=== PATIENT | male | born 1945 | race Caucasian/White ===

== ENCOUNTER → 2016-12-30 | Outpatient (CLI) | payer OTHER ==
[~2016-12-30] MED LIST: ACET65TA; ASPI81TA85 PO; CENTTAB PO; CIAL5TAB PO; COUM10TA; COUM2.5T17 PO; GLUCTAB6 PO; KAPIDEX; NEXI20CA PO; PERC5TAB12 PO; PERC7.5T8
[2016-12-30 08:11] LABS: BASO # 0.1 K/mm3 (0.0-0.2); BASO % 1.2 % (0.0-1.0); EOS # 0.2 K/mm3 (0.0-0.50); EOS % 4.4 % (0.0-3.0); LARGE UNSTAINED CELL # 0.1 K/mm3 (0.0-0.4); LARGE UNSTAINED CELL % 2.3 % (0.0-4.0); LYMPH # 1.8 K/mm3 (1.5-4.5); LYMPH % 29.4 % (24.0-44.0); MEAN CORPUSCULAR HEMOGLOBIN 32.1 pg (27.0-33.0); MEAN CORPUSCULAR VOLUME 94.3 fl (80.0-96.0); MONO # 0.4 K/mm3 (0.0-0.8); MONO % 6.7 % (0.0-5.0); NEUTROPHILS # 3.2 K/mm3 (1.8-7.7); PLATELET COUNT, AUTOMATED 226 k/mm3 (150-450); RED CELL DISTRIBUTION WIDTH 12.8 % (11.5-14.5); WHITE BLOOD COUNT 5.7 K/mm3 (4.0-10.0)
[2016-12-30 09:11] LABS: ERYTHROCYTE SEDIMENTATION RATE 3 mm/hr (0-20)
--- NOTE | 2016-12-30 10:47 | REP ---
TRIPLE PHASE BONE SCAN, KNEES: Following the intravenous administration of 22 mCi of technetium-99m MDP, patient's knees are imaged in the flow phase in the anterior and posterior projections, showing slightly increased blood flow to the region of the left knee. Immediate blood pool and 2.5 hour delay images are performed of the knees in the anterior, posterior, and both lateral projections. 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 There is mild diffuse increased blood pooling in the region of the left knee joint. Delayed images show mild increased uptake in the distal end of the femur and proximal end of the tibia adjacent to the metallic prosthetic components. This most likely represents postsurgical osseous uptake. Some degree of loosening cannot be completely excluded. Signed by Yfn Cagle MD 12/30/2016 05:07 P
== END ==
LOC: M RAD 07:25
PROVIDERS: ATTEND Orthopaedic Surgery
DX: Z96.652 Presence of left artificial knee joint (principal)

== ENCOUNTER → 2017-03-07 | Outpatient (REF) | payer OTHER | LOC: M LAB REF 12:06 | PROVIDERS: ATTEND Internal Medicine | DX: R53.83 Other fatigue (principal); N52.9 Male erectile dysfunction, unspecified ==

== ENCOUNTER → 2018-08-26 | Outpatient (REF) | payer MEDICARE, OTHER | LOC: M LAB REF 12:37 | PROVIDERS: ATTEND Surgery | DX: D17.22 Benign lipomatous neoplasm of skin and subcutaneous tissue of left arm (principal) ==

== ENCOUNTER → 2019-07-26 | Outpatient (REF) | payer MEDICARE, OTHER | LOC: M LAB REF 12:08 | PROVIDERS: ATTEND Physician Assistant | DX: M54.5 Low back pain (principal); N39.0 Urinary tract infection, site not specified ==

== ENCOUNTER → 2020-05-15 | Outpatient (CLI) | payer MEDICARE, OTHER ==
[~2020-05-15] MED LIST changes: -ASPI81TA85 PO; +ASPI81TA86 PO
--- NOTE | 2020-05-15 10:23 | REP ---
INDICATION: DYSPNEA COMPARISON: 04/16/2016 TECHNIQUE: PA and lateral. FINDINGS: The mediastinum and cardiac silhouette are normal. The lung garcia are clear and without acute consolidation, effusion, or pneumothorax. Small stable calcified granuloma in the periphery of the left mid lung zone unchanged. The skeletal structures are intact and normal. IMPRESSION: No acute cardiopulmonary process. If the patient remains symptomatic consider chest CT for further investigation. <Electronically signed by Erick Hernandez > 05/15/20 [id number]
== END ==
LOC: M RAD 10:05
PROVIDERS: ATTEND Physician Assistant
DX: R06.00 Dyspnea, unspecified (principal)

== ENCOUNTER 2023-04-23 15:49 | Emergency (ER) | payer OTHER, MEDICARE ==
[~2023-04-23] VITALS: Ht 190.5 cm; Wt 102.3 kg
[~2023-04-23 15:49] MED LIST changes: -GLUCTAB6 PO; +GLUCTAB7 PO
[2023-04-23 15:52] VITALS: BP 146/82; TEMP 98.9; O2SAT 97
[2023-04-23] MEDS ORDERED: ATOR40TA75 (16:18)
[2023-04-23] MEDS ORDERED: INCR1INH (16:18)
[2023-04-23] MEDS ORDERED: OMEP1CAP71 PO (16:18)
[2023-04-23] MEDS ORDERED: ALBU8.5H (16:18)
[2023-04-23] MEDS ORDERED: TADA5TAB PO (16:18)
== END 2023-04-23 20:13 | disposition home or self-care (01) ==
LOC: M ED 15:49
DX: S16.1XXA Strain of muscle, fascia and tendon at neck level, initial encounter (principal); V49.40XA Driver injured in collision with unspecified motor vehicles in traffic accident, initial encounter; J44.9 Chronic obstructive pulmonary disease, unspecified; Z87.891 Personal history of nicotine dependence; Z79.899 Other long term (current) drug therapy

== ENCOUNTER 2023-07-04 05:38 | Emergency (ER) | payer MEDICARE, OTHER ==
[~2023-07-04] VITALS: Ht 190.5 cm; Wt 103.2 kg
[~2023-07-04 05:38] MED LIST changes: +ALBU8.5H; +ATOR40TA75; +INCR1INH; +OMEP1CAP71 PO; +TADA5TAB PO
[2023-07-04 05:44] VITALS: BP 156/78; TEMP 97.8; O2SAT 96
[2023-07-04] MEDS ORDERED: dexAMETHasone 20MG/5ML VIAL IV ONE (07:25)
[2023-07-04] MEDS ORDERED: IPRATROPIUM 0.5MG/ALBUTEROL 2.5MG INH SOL UD 3ML (DUONEB) NEB ONE (07:25)
[2023-07-04 08:15] LABS: BASO # 0.1 10^3/uL (0.0-0.2); BASO % 1.3 % (0.0-1.0); EOS # 0.7 10^3/uL (0.0-0.5); EOS % 7.7 % (0.0-3.0); HEMATOCRIT 45.5 % (42.0-52.0); HEMOGLOBIN 15.1 g/dl (13.5-17.5); LYMPH # 1.6 10^3/uL (1.5-5.0); LYMPH % 16.9 % (24.0-44.0); MEAN CORPUSCULAR HEMOGLOBIN 31.1 pg (27.0-33.0); MEAN CORPUSCULAR HGB CONC 33.2 g/dl (32.0-36.5); MEAN CORPUSCULAR VOLUME 93.8 fl (80.0-96.0); MONO # 0.8 10^3/uL (0.0-0.8); MONO % 8.4 % (2.0-8.0); NEUTROPHILS # 6.2 10^3/uL (1.5-8.5); NEUTROPHILS % 65.4 % (36.0-66.0); PLATELET COUNT, AUTOMATED 277 10^3/uL (150-450); RED BLOOD COUNT 4.85 10^6/uL (4.30-6.10); WHITE BLOOD COUNT 9.4 10^3/uL (4.0-10.0)
[2023-07-04] MEDS ORDERED: PRED20TA PO (09:50)
[2023-07-04] MEDS ORDERED: DOXY-443 PO (09:50)
== END 2023-07-04 10:00 | disposition home or self-care (01) ==
LOC: M ED 05:38
DX: J44.1 Chronic obstructive pulmonary disease with (acute) exacerbation (principal); E78.5 Hyperlipidemia, unspecified; K21.9 Gastro-esophageal reflux disease without esophagitis; Z87.891 Personal history of nicotine dependence; Z79.51 Long term (current) use of inhaled steroids; Z79.899 Other long term (current) drug therapy
CPT/HCPCS: 71046; 80047; 85025; 87486; 87581; 87633; 87798; 94640; 96374; 99284; J1100

== ENCOUNTER 2023-07-13 02:58 | Emergency (ER) | payer MEDICARE, OTHER ==
[~2023-07-13] VITALS: Ht 190.5 cm; Wt 102.0 kg
[~2023-07-13 02:58] MED LIST changes: -ATOR40TA75; +ATOR40TA75 PO; +DOXY-443 PO; +PRED20TA PO
[2023-07-13] MEDS ORDERED: METAL LOCK LOOP XX ONE (04:32)
[2023-07-13 05:38] LABS: BASO # 0.1 10^3/uL (0.0-0.2); EOS # 0.8 10^3/uL (0.0-0.5); HEMOGLOBIN 15.3 g/dl (13.5-17.5); LYMPH # 1.9 10^3/uL (1.5-5.0); LYMPH % 19.1 % (24.0-44.0); MEAN CORPUSCULAR HEMOGLOBIN 31.5 pg (27.0-33.0); MEAN CORPUSCULAR VOLUME 92.6 fl (80.0-96.0); MONO # 1.1 10^3/uL (0.0-0.8); NEUTROPHILS # 6.1 10^3/uL (1.5-8.5); NEUTROPHILS % 60.1 % (36.0-66.0); PLATELET COUNT, AUTOMATED 255 10^3/uL (150-450); RED BLOOD COUNT 4.86 10^6/uL (4.30-6.10); WHITE BLOOD COUNT 10.1 10^3/uL (4.0-10.0)
[2023-07-13 06:14] LABS: ALBUMIN 3.5 G/DL (3.2-5.2); ALKALINE PHOSPHATASE 85 U/L (46-116); ALT/SGPT 37 U/L (7.0-40); AST/SGOT 15 U/L (<34); BILIRUBIN,DIRECT 0.3 MG/DL (<0.4); BILIRUBIN,TOTAL 0.8 MG/DL (0.3-1.2); BLOOD UREA NITROGEN 18 MG/DL (9-23); CALCIUM LEVEL 8.7 MG/DL (8.3-10.6); CARBON DIOXIDE LEVEL 29 MMOL/L (20-31); CHLORIDE LEVEL 107 MMOL/L (98-107); CPK CREATINE PHOSPHOKINASE 134 U/L (46-171); CREATININE FOR GFR 0.95 MG/DL (0.70-1.30); GLOMERULAR FILTRATION RATE > 60.0 (>42); GLUCOSE, FASTING 99 MG/DL (74-106); MB/CK RELATIVE INDEX 1.49 (< OR =4); POTASSIUM SERUM 4.7 MMOL/L (3.5-5.1); SODIUM LEVEL 141 MMOL/L (136-145); TOTAL PROTEIN 6.1 G/DL (5.7-8.2)
[2023-07-13] MEDS: IPRATROPIUM 0.5MG/ALBUTEROL 2.5MG INH SOL UD 3ML (DUONEB) NEB SCH ×3 (06:34→06:56)
[2023-07-13] MEDS ORDERED: methylPREDNISolone 125MG 2ML VIAL IV ONE (07:00)
[2023-07-13 07:41] LABS: CK-MB VALUE MASS 2.8 NG/ML (<3.6)
[2023-07-13 07:53] LABS: MB/CK RELATIVE INDEX 1.98 (< OR =4)
[2023-07-13 07:56] VITALS: O2SAT 93
[2023-07-13] MEDS ORDERED: PRED20TA PO (08:21)
[2023-07-13 08:28] VITALS: BP 151/71; TEMP 97.8; O2SAT 95
[2023-07-16] MEDS ORDERED: THERTAB52 PO (07:51)
[2023-07-16] MEDS ORDERED: BREO1INH3 (07:51)
[2023-07-16] MEDS ORDERED: TADA5TAB PO (08:21)
== END 2023-07-13 08:32 | disposition home or self-care (01) ==
LOC: M ED 02:58
DX: J44.1 Chronic obstructive pulmonary disease with (acute) exacerbation (principal); K21.9 Gastro-esophageal reflux disease without esophagitis; I49.1 Atrial premature depolarization; Z79.810 Long term (current) use of selective estrogen receptor modulators (SERMs); Z79.899 Other long term (current) drug therapy; Z79.51 Long term (current) use of inhaled steroids; Z79.52 Long term (current) use of systemic steroids
CPT/HCPCS: 71045; 80048; 80076; 82550; 82553; 83605; 83880; 84484; 85025; 87486; 87581; 87633; 87798; 93005; 94640; 96374; 99284; J2930

== ENCOUNTER 2023-07-30 07:40 | Day surgery (SDC) | payer MEDICARE, OTHER ==
[~2023-07-30] VITALS: Ht 190.5 cm; Wt 98.6 kg
[~2023-07-30 07:40] MED LIST changes: +BREO1INH3; +NS 1,000 ML IV ONE; +THERTAB52 PO; +propofoL 200 MG/20 ML VIAL As Ordered ONE
[2023-07-30] MEDS: NS 1,000 ML IV ONE (08:25)
[2023-07-30 09:05] VITALS: TEMP 98.1
[2023-07-30 09:25] VITALS: BP 113/63; O2SAT 95
== END 2023-07-30 09:32 | disposition home or self-care (01) ==
LOC: M OPP 07:40
PROVIDERS: ATTEND Internal Medicine Gastroenterology
DX: Z12.11 Encounter for screening for malignant neoplasm of colon (principal); Z86.010 Personal history of colon polyps; Z80.0 Family history of malignant neoplasm of digestive organs; D12.3 Benign neoplasm of transverse colon; K64.0 First degree hemorrhoids; K22.70 Barrett's esophagus without dysplasia; K21.00 Gastro-esophageal reflux disease with esophagitis, without bleeding; R12 Heartburn; Z79.02 Long term (current) use of antithrombotics/antiplatelets; Z79.51 Long term (current) use of inhaled steroids; Z79.891 Long term (current) use of opiate analgesic; Z79.899 Other long term (current) drug therapy

== ENCOUNTER 2023-10-13 11:03 | Day surgery (SDC) | payer MEDICARE, OTHER ==
[~2023-10-13] VITALS: Ht 190.5 cm; Wt 101.0 kg
[~2023-10-13 11:03] MED LIST changes: +ALBU2.5V10 INH; -ALBU8.5H; +ALBU8.5H INH; +BREO1INH3 INH; +INCR1INH INH; +LR 1,000 ML IV SCH; +MIDAZOLAM INJ 2MG/2ML VIAL As Ordered ONE; -NS 1,000 ML IV ONE; +VITA-256 PO; +fentaNYL 100 MCG/2 ML INJECTION As Ordered ONE; -propofoL 200 MG/20 ML VIAL As Ordered ONE
[2023-10-13] MEDS: FLURBIPROFEN 0.03% OPHTH SOLN 2.5 ML OS SCH (12:30)
[2023-10-13] MEDS: TETRACAINE 0.5% OPHTH SOLN 4ML OS SCH (12:30)
[2023-10-13] MEDS: ATROPINE SULFATE 1% OPHTH SOLN 2ML BTL OS SCH (12:30)
[2023-10-13] MEDS: PHENYLEPHRINE 2.5% OPHTH SOL 2ML OS SCH (12:30)
[2023-10-13] MEDS: LIDOCAINE 1% SDV 5ML VIAL As Ordered ONE (14:08)
[2023-10-13] MEDS: CEFUROXIME 1MG/0.1ML INTRACAMERAL INJ As Ordered ONE (14:09)
[2023-10-13 14:29] VITALS: BP 154/64; TEMP 97.3; O2SAT 96
== END 2023-10-13 14:45 | disposition home or self-care (01) ==
LOC: M SDC 11:03
PROVIDERS: ATTEND Ophthalmology
DX: H25.12 Age-related nuclear cataract, left eye (principal); R06.02 Shortness of breath; J44.9 Chronic obstructive pulmonary disease, unspecified; E78.00 Pure hypercholesterolemia, unspecified; K21.9 Gastro-esophageal reflux disease without esophagitis; Z87.891 Personal history of nicotine dependence; Z79.899 Other long term (current) drug therapy; Z79.51 Long term (current) use of inhaled steroids
CPT/HCPCS: 66984; J0697; J2250; J3010; V2632

== ENCOUNTER 2023-11-03 09:35 | Day surgery (SDC) | payer MEDICARE, OTHER ==
[~2023-11-03] VITALS: Ht 190.5 cm; Wt 100.2 kg
[~2023-11-03 09:35] MED LIST changes: +DOXY-323 PO; -DOXY-443 PO
[2023-11-03] MEDS: FLURBIPROFEN 0.03% OPHTH SOLN 2.5 ML OD SCH (10:11)
[2023-11-03] MEDS: ATROPINE SULFATE 1% OPHTH SOLN 2ML BTL OD SCH (10:11)
[2023-11-03] MEDS: PHENYLEPHRINE 2.5% OPHTH SOL 2ML OD SCH (10:11)
[2023-11-03] MEDS: TETRACAINE 0.5% OPHTH SOLN 4ML OD SCH (10:12)
[2023-11-03] MEDS ORDERED: FLUT1BLS8 (10:23)
[2023-11-03] MEDS: CEFUROXIME 1MG/0.1ML INTRACAMERAL INJ As Ordered ONE (11:37)
[2023-11-03] MEDS: LIDOCAINE 1% SDV 5ML VIAL As Ordered ONE (11:37)
[2023-11-03 11:58] VITALS: BP 133/69; TEMP 97.8; O2SAT 98
== END 2023-11-03 12:20 | disposition home or self-care (01) ==
LOC: M SDC 09:35
PROVIDERS: ATTEND Ophthalmology
DX: H25.11 Age-related nuclear cataract, right eye (principal); E78.00 Pure hypercholesterolemia, unspecified; K21.9 Gastro-esophageal reflux disease without esophagitis; M19.90 Unspecified osteoarthritis, unspecified site; J44.9 Chronic obstructive pulmonary disease, unspecified; Z98.42 Cataract extraction status, left eye; Z79.899 Other long term (current) drug therapy; Z79.51 Long term (current) use of inhaled steroids
CPT/HCPCS: 66984; J0697; J2250; J3010; V2632